=== PATIENT | male | born 1970 | race Caucasian/White ===

== ENCOUNTER 2017-07-05 22:51 | Emergency (ER) | payer MEDICAID ==
[~2017-07-05] VITALS: Ht 180.3 cm; Wt 104.3 kg
[2017-07-05 22:51] VITALS: BP_SYST 137; BP_SYST 147; BP_DIAS 75; BP_DIAS 93
--- NOTE | 2017-07-05 22:51 | NUR ---
PT MAIA MALHOTRA, PREBOOK. TAKEN TO OF
--- NOTE | 2017-07-05 23:01 | NUR ---
Dr. Perez evaluating patient
[2017-07-05] MEDS ORDERED: KETOROLAC 30 MG/ML VIAL IM ONE (23:05)
--- NOTE | 2017-07-05 23:17 | NUR ---
[facility] DRAWING LABS
--- NOTE | 2017-07-05 23:29 | NUR ---
PT RETURN FROM XRAY
[2017-07-05 23:41] LABS: BASOPHILS # (AUTO) 0.1 K/uL (0.00-0.22); BASOPHILS % (AUTO) 1.3 % (0.0-2.0); EOSINOPHILS # (AUTO) 0.3 K/uL (0-0.4); HEMATOCRIT 52.4 % (36-52); HEMOGLOBIN 17.6 g/dL (12.0-18.0); LYMPHOCYTES % (AUTO) 11.8 % (20.5-51.1); MEAN CORPUSCULAR HEMOGLOBIN 30 pg (27-31); MEAN CORPUSCULAR HGB CONC 34 g/dL (33-37); MEAN CORPUSCULAR VOLUME 89 fL (80-94); MONOCYTES # (AUTO) 0.6 K/uL (0.8-1.0); MONOCYTES % (AUTO) 6.3 % (1.7-9.3); NEUTROPHILS # (AUTO) 6.7 K/uL (1.8-7.7); NEUTROPHILS % (AUTO) 77.6 % (42.2-75.2); PLATELET COUNT (AUTO) 213 K/uL (140-450); RED BLOOD CELL COUNT(AUTO) 5.87 MIL/uL (4.20-6.10); RED CELL DISTRIBUTION WIDTH 12.6 % (11.6-13.7); WHITE BLOOD COUNT (AUTO) 8.7 K/uL (4.8-10.8)
[2017-07-05 23:42] LABS: ANION GAP 14.5 (8-16); CREATININE 1.3 mg/dL (0.7-1.3); POTASSIUM 4.5 mmol/L (3.5-5.1)
[2017-07-05 23:56] LABS: CREATINE KINASE MB 1.1 ng/mL (0-3.6)
--- NOTE | 2017-07-06 00:01 | NUR ---
IM MEDS GIVEN-NADR AT THIS TIME
[2017-07-06] MEDS ORDERED: LIB25 PO (00:10)
[2017-07-06] MEDS ORDERED: ACET-2863 PO (00:10)
[2017-07-06 00:12] VITALS: BP 133/86
--- NOTE | 2017-07-06 00:13 | NUR ---
Patient discharged with v/s stable. Written and verbal after care instructions given and explained. Patient alert, oriented and verbalized understanding of instructions. Police with in custody. All questions addressed prior to discharge. ID band removed. Patient advised to follow up with PMD.NO Rx given. Patient educated on indication of medication including possible reaction and side effects. Opportunity to ask questions provided and answered.
== END 2017-07-06 00:13 ==
LOC: MED 22:51
DX: Z02.89 Encounter for other administrative examinations (principal); R07.89 Other chest pain; R51 Headache; I10 Essential (primary) hypertension; F31.9 Bipolar disorder, unspecified; Z90.89 Acquired absence of other organs
CPT/HCPCS: 36415; 71010; 80048; 82550; 82553; 84484; 85025; 93005; 96372; 99285; J1885

== ENCOUNTER 2017-09-28 13:16 | Emergency (ER) | payer MEDICAID ==
[~2017-09-28] VITALS: Ht 180.3 cm; Wt 106.6 kg
[~2017-09-28 13:16] MED LIST: ACET-2863 PO; LIB25 PO
--- NOTE | 2017-09-28 13:16 | NUR ---
PT TO OVERFLOW.
[2017-09-28 13:18] VITALS: BP 127/74
--- NOTE | 2017-09-28 13:20 | NUR ---
PATIENT BIB [facility] FOR PRE-BOOK CLEARANCE . PT STATES HE HAS CHRONIC LBP, HX HTN, GERD, BIPOLAR DISORDER . DENIES N/V/D; SKIN IS PINK/WARM/DRY; AAOX4 WITH EVEN AND STEADY GAIT; LUNGS CLEAR BL; HR EVEN AND REGULAR; PT DENIES ANY FEVER, CP, SOB, OR COUGH AT THIS TIME; PATIENT STATES PAIN OF 6/10 AT THIS TIME; VSS; PATIENT POSITIONED IN OVERFLOW. ER MD MADE AWARE OF PT STATUS. [facility] CHAIRSIDE.
--- NOTE | 2017-09-28 13:34 | NUR ---
DR. GONZALEZ EVALUATING PT IN OVERFLOW.
[2017-09-28 13:43] VITALS: BP 144/87
--- NOTE | 2017-09-28 13:45 | NUR ---
DC TO LAW ENFORCEMENT, OK TO BOOK. 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 DC AMBULATORY ACCOMPANIED BY POLICE. VSWNL, NO DISTRESS.
== END 2017-09-28 13:45 ==
LOC: MED 13:16
DX: Z02.89 Encounter for other administrative examinations (principal); G89.29 Other chronic pain; M54.5 Low back pain; J45.909 Unspecified asthma, uncomplicated; F17.210 Nicotine dependence, cigarettes, uncomplicated; K21.9 Gastro-esophageal reflux disease without esophagitis; I10 Essential (primary) hypertension; F31.9 Bipolar disorder, unspecified; Z79.899 Other long term (current) drug therapy; Z85.9 Personal history of malignant neoplasm, unspecified
CPT/HCPCS: 99283

== ENCOUNTER 2018-01-25 01:47 | Emergency (ER) | payer MEDICAID ==
[~2018-01-25] VITALS: Ht 180.3 cm; Wt 110.7 kg
[2018-01-25 01:52] VITALS: BP 146/90
--- NOTE | 2018-01-25 02:00 | NUR ---
PT CAME IN FOR RIGHT MIDDLE FINGER SWELLING AND REDNESS STATING 7/10 PAIN. 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 PT STATED THAT HE HAS HX OF ASTHMA. NOT SURE WHEN HE RECEIVED TETANUS VAC BUT HE RECEIVED IT BEFORE. RR EVEN AND UNLABORED. AFEBRILE. VS WITHOUT ACUTE DISTRESS. ER MD MADE AWARE.
--- NOTE | 2018-01-25 02:39 | NUR ---
DR. BAR EVALUATING PT.
[2018-01-25] MEDS ORDERED: CEPHALEXIN 500 MG CAP PO ONE (02:55)
[2018-01-25] MEDS ORDERED: SULFAMETH/TRIMETH DS 800/160MG 1 TAB PO ONE (02:55)
[2018-01-25 03:12] VITALS: BP 138/84
--- NOTE | 2018-01-25 03:12 | NUR ---
Patient discharged with v/s stable. Written and verbal after care instructions given and explained. Patient alert, oriented and verbalized understanding of instructions. Ambulatory with steady gait. All questions addressed prior to discharge. ID band removed. Patient advised to follow up with PMD. Rx of BACTRIM, MUPIROCIN, CEPHALEXIN given. Patient educated on indication of medication including possible reaction and side effects. Opportunity to ask questions provided and answered.
== END 2018-01-25 03:12 | disposition home or self-care (01) ==
LOC: MED 01:47
DX: A49.02 Methicillin resistant Staphylococcus aureus infection, unspecified site (principal); L03.011 Cellulitis of right finger; J45.909 Unspecified asthma, uncomplicated
CPT/HCPCS: 99283